=== PATIENT | female | born 1995 | race Hispanic/Latino ===

== ENCOUNTER 2022-04-14 16:16 | Emergency (ER) | payer OTHER ==
[~2022-04-14] VITALS: Ht 160 cm; Wt 83.9 kg
[2022-04-14] MEDS ORDERED: IBUP-2070 PO (17:34)
[2022-04-14] MEDS ORDERED: BENZ-39 PO (17:34)
[2022-04-14 18:12] VITALS: BP 120/75
== END 2022-04-14 18:13 | disposition home or self-care (01) ==
LOC: EDH 16:16
DX: J06.9 Acute upper respiratory infection, unspecified (principal); Z20.822 Contact with and (suspected) exposure to COVID-19; Z90.49 Acquired absence of other specified parts of digestive tract; Z98.890 Other specified postprocedural states; Z88.8 Allergy status to other drugs, medicaments and biological substances
CPT/HCPCS: 99283; 87635; 87880; 87804 ×2; C9803